=== PATIENT | male | born 1985 | race Caucasian/White ===

== ENCOUNTER 2017-11-22 17:52 | Emergency (ER) | payer OTHER ==
[~2017-11-22] VITALS: Ht 167.6 cm; Wt 73.9 kg
[2017-11-22 18:17] VITALS: Ht 167.6 cm; Wt 73.9 kg
[2017-11-22 20:20] VITALS: BP 133/70
== END 2017-11-22 20:20 | disposition home or self-care (01) ==
LOC: ED 17:52
DX: S61.412A Laceration without foreign body of left hand, initial encounter (principal); R03.0 Elevated blood-pressure reading, without diagnosis of hypertension; W26.9XXA Contact with unspecified sharp object(s), initial encounter; Y93.89 Activity, other specified; Y92.89 Other specified places as the place of occurrence of the external cause; Y99.8 Other external cause status
CPT/HCPCS: 90715; J1885; J2001